=== PATIENT | female | born 1990 | race Caucasian/White ===

== ENCOUNTER 2021-07-23 17:20 | Emergency (ER) | payer MEDICAID ==
[~2021-07-23] VITALS: Ht 167.6 cm; Wt 80.9 kg
[~2021-07-23 17:20] MED LIST: DEXL60CA3 PO; DIPH-423 PO; EPIN0.3P3 IM; PRED50TA PO; RANI-366 PO; SUCR1ORA2 PO
[2021-07-23 17:40] VITALS: BP 150/86
[2021-07-23] MEDS ORDERED: DOXY100C43 PO (20:08)
[2021-07-23] MEDS ORDERED: ALBU18HF2 INH (20:08)
[2021-07-23] MEDS ORDERED: PRED20TA PO (20:08)
[2021-07-23] MEDS ORDERED: acetaminophen 325mg tablet PO ONE (20:15)
[2021-07-23] MEDS ORDERED: ibuprofen tablet 400 MG TABLET PO ONE (20:15)
== END 2021-07-23 20:42 | disposition home or self-care (01) ==
LOC: ER 17:21
DX: J20.9 Acute bronchitis, unspecified (principal); Z20.822 Contact with and (suspected) exposure to COVID-19; R07.89 Other chest pain; R05.9 Cough, unspecified; Z98.890 Other specified postprocedural states; Z72.89 Other problems related to lifestyle; Z60.2 Problems related to living alone; Z79.2 Long term (current) use of antibiotics; Z79.899 Other long term (current) drug therapy
CPT/HCPCS: 71045; 87635; 93005; 99285; C9803

== ENCOUNTER 2025-09-02 16:08 | Emergency (ER) | payer MEDICAID ==
[~2025-09-02] VITALS: Ht 170.2 cm; Wt 85.9 kg
[~2025-09-02 16:08] MED LIST changes: +ALBU18HF2 INH
[2025-09-02] MEDS ORDERED: EPIN0.3P3 IM (20:11)
--- NOTE | 2025-09-02 20:11 | Physician Documentation ---
History of Present Illness ~ Chief Complaint: Allergic Reaction Stated Complaint: ALLERGIC REACTION Time Seen by MD: 16:37 Primary Medical Doctor: [facility] Mode of Arrival: PORonal COLLINS Is a very pleasant 35-year-old female that presents to the emergency department for evaluation of allergic reaction. Patient reports that she was cleaning of leaves in her yd today that she believes have pesticide on them. Patient reports that she has a significant history of anaphylactic response to multiple allergens. She has previously been intubated and hospitalized for them. Patient reports that her ears are hot and swollen posterior aspect of her neck is swelling she has a stuffy sounding voice per patient patient denies any difficulty swallowing or any airway concerns at this time. Patient denies any other symptoms at this time. Medication Reconciliation Allergies: Coded Allergies: No Known Allergies (Unverified , 09/04/14) Scheduled Albuterol Sulfate (Ventolin Hfa), 2 PUFFS INH Q4HPRN Dexlansoprazole (Dexilant), 1 CAP PO DAILY Epinephrine (Epipen 2-Tomi), 1 SYR IM ONCE Prednisone (Prednisone), 1 TABLET PO DAILY Ranitidine Hcl (Zantac), 150 MG PO DAILY Sucralfate (Carafate), 10 ML PO ACHS Scheduled PRN Diphenhydramine Hcl (Benadryl), 25 MG PO TID PRN for itching Epinephrine (Epipen 2-Tomi), 1 APPLIC IM ONCE PRN for allergies Past Medical History Past Medical History: No Pertinent History Past Surgical History: Alcohol Use: Occasionally Drug Use: none Lives with: Alone Lives In: Home Occupation: employed Review of Systems ROS As stated above in the HPI, otherwise all systems are reviewed and negative. Physical Exam Vital Signs: Temperature: 99.0, Heart Rate: 84, Respiratory Rate: 15, BP: 159/108, Pulse Oximetry: 98, Weight: 85.910 Oxygen Flow Rate: 0 Physical Exam VITALS: Reviewed and as above. GENERAL: Alert, no apparent distress. HEENT: Normocephalic, atraumatic, PERRL, EOMI, dry mucosa, no erythema RESPIRATORY: Lungs clear, normal breath sounds, no respiratory distress noted on examination. CHEST: No accessory muscle use, no retractions CV: Regular rate, rhythm, no edema, no murmur, No: JVD GI: Soft, non-tender, bowels sounds present, no rebound, guarding, or rigidity BACK: No CVA tenderness, or swelling MUSCULOSKELETAL No deformities, no edema SKIN: Warm and dry, edema erythema and hives noted to the posterior aspect of the neck patient's trunk in the ears. NEURO: Oriented x4, No motor or sensory deficit PSYCH: Normal mood and affect, no agitation Progress Results/Orders Results/Orders Completed Orders - BARBARA RIVERA Methylprednisolone Sod Succ (Solumedrol (09/02/25 16:30) Diphenhydramine Capsule (Benadryl Capsul (09/02/25 16:30) Famotidine Tablet (Pepcid Tablet) (09/02/25 16:30) Medications Received in ER Medications (Trade) Dose Ordered Sig/Hakan Route PRN Reason Start Time Stop Time Status Last Admin Dose Admin (SoluMEDROL 125mg inj) 125 mg ONCE ONCE IM 09/02/25 16:30 09/02/25 16:31 DC 09/02/25 16:37 125 MG (Benadryl capsule) 50 mg ONCE ONCE PO 09/02/25 16:30 09/02/25 16:31 DC 09/02/25 16:37 50 MG (Pepcid tablet) 20 mg ONCE ONCE PO 09/02/25 16:30 09/02/25 16:31 DC 09/02/25 16:37 20 MG Vital Signs 09/02/25 09/02/25 09/02/25 09/02/25 16:12 16:23 16:51 17:57 Temp 99.0 Pulse 91 85 79 Resp 18 15 15 B/P (MAP) 140/81 129/108 (115) 127/85 (99) Pulse Ox 97 99 98 O2 Flow Rate 0 09/02/25 09/02/25 09/02/25 18:45 19:05 20:08 Temp 99.0 99.0 Pulse 84 72 B/P (MAP) 159/108 (125) 147/110 (122) Pulse Ox 98 97 O2 Flow Rate 0 0 Medical Decision Making Additional information obtaine: other Findings Chief Complaint: Acute allergic reaction to pesticide exposure History of Present Illness: 35-year-old female with significant history of multiple severe allergic reactions (including peanuts and other allergens) and prior intubation for presumed anaphylaxis presented to the emergency department following pesticide exposure while cleaning leaves. Patient reported "hot potato" voice, posterior neck swelling (external), erythema, and urticaria. Notably, patient denied airway compromise, dysphagia, dyspnea, or respiratory distress at presentation. Assessment and Clinical Reasoning: The patient presented with moderate allergic reaction with concerning features including voice changes and neck swelling, though without dioni anaphylaxis criteria. Given her high-risk history of previous anaphylactic reactions requiring intubation, aggressive treatment was warranted. The "hot potato" voice and posterior neck swelling raised concern for potential airway involvement, though the absence of dysphagia, stridor, or respiratory compromise suggested the reaction had not progressed to life-threatening anaphylaxis at the time of presentation. Treatment Decisions: The patient received appropriate adjunctive therapy including: Methylprednisolone 125 mg IV Diphenhydramine 50 mg IV Famotidine 20 mg IV While epinephrine is the first-line treatment for anaphylaxis, the clinical presentation suggested a moderate allergic reaction without meeting full anaphylaxis criteria (no respiratory compromise, hypotension, or gastrointestinal symptoms). The combination of H1 antihistamine (diphenhydramine), H2 antihistamine (famotidine), and corticosteroid was appropriate for managing the cutaneous and mucosal manifestations. The patient demonstrated complete resolution of symptoms with normalization of vital signs following this treatment regimen. Observation Period: The patient was observed for an appropriate duration given her risk factors. Patients with history of severe anaphylaxis, particularly those requiring multiple doses of epinephrine or with asthma, warrant extended observation periods of 4-8 hours or longer. The [place] [employer] recommends observation periods be individualized based on severity of initial reaction, response to treatment, and risk factors for biphasic reactions. Biphasic reactions occur in up to 20% of anaphylaxis cases and can develop 4-12 hours after initial presentation. Given this patient's high-risk history and initial concerning symptoms, extended observation was appropriate until complete symptom resolution was confirmed. Discharge Planning and Risk Mitigation: Epinephrine auto-injector prescription: The patient is being discharged with prescriptions for two epinephrine auto-injectors (0.3 mg each) - one for home and one for her vehicle. This follows evidence-based guidelines recommending all patients with history of anaphylaxis receive at least two epinephrine auto- injectors, as approximately 10% of anaphylactic reactions require more than one dose. The patient should be instructed to use epinephrine at the first sign of a generalized allergic reaction or any symptoms similar to previous severe reactions. Patient education priorities: Recognition of anaphylaxis symptoms (urticaria, angioedema, respiratory symptoms, gastrointestinal symptoms, hypotension) Proper epinephrine auto-injector technique with hands-on demonstration Immediate activation of EMS (call 911) after epinephrine administration Strict avoidance of identified triggers, particularly pesticides Awareness that symptoms may recur up to 3 days after initial reaction Follow-up care: The patient requires timely follow-up with an certified alcohol and drug counselor- package car driver for comprehensive evaluation, including potential skin or serum testing to identify specific triggers, development of a detailed emergency action plan, and consideration of additional allergen avoidance strategies. The certified alcohol and drug counselor can also evaluate for potential underlying mast cell disorders, which are present in approximately 8% of patients with recurrent anaphylaxis. Return precautions: The patient has been instructed to return immediately or call 911 if she experiences: Any respiratory symptoms (shortness of breath, wheezing, throat tightness) Difficulty swallowing or voice changes Dizziness, lightheadedness, or syncope Recurrence of hives, swelling, or other allergic symptoms Any symptoms concerning for anaphylaxis Disposition: Discharge home is appropriate given complete symptom resolution, hemodynamic stability, adequate observation period, prescription for epinephrine auto-injectors, comprehensive patient education, and established follow-up plan. The patient's high-risk history necessitates strict adherence to avoidance measures and immediate availability of epinephrine. Medical Decision-Making Complexity: This case represents moderate to high complexity medical decision-making given the patient's significant history of severe allergic reactions requiring intubation, presentation with concerning symptoms suggesting potential airway involvement, need for risk stratification regarding anaphylaxis versus moderate allergic reaction, and comprehensive discharge planning to prevent future life-threatening reactions. Differential Dx:Considerations: Include: Anaphylaxis, Angioedema, Bronchospasm, Contact dermatitis, Drug reaction, Hypotension, Latex allergy, Renal failure, Respiratory failure, Shock, Urticaria, Other Departure Disposition: 01 HOME / SELF CARE / HOMELESS Impression: Primary Impression: Acute allergic reaction Condition: Stable Discharge Instructions: Hives, [id number] Additional Instructions: Why You Came to the Emergency Department Today You came to the emergency department because you had an allergic reaction after being exposed to pesticides while cleaning leaves. You developed voice changes, swelling on the back of your neck, redness, and hives. We treated you with medications including steroids (Solu-Medrol), an antihistamine (Benadryl), and famotidine to help reduce your allergic reaction. Your symptoms have now resolved and your vital signs are normal. What You Need to Know About Allergic Reactions Given your history of severe allergic reactions that required hospitalization and breathing tube placement in the past, you are at higher risk for serious allergic reactions in the future. Allergic reactions can sometimes come back within hours after the first reaction (called a biphasic reaction), so it's important to watch for symptoms over the next 1-3 days. Warning Signs of a Severe Allergic Reaction (Anaphylaxis) Call 911 immediately if you develop any of these symptoms: Difficulty breathing, wheezing, or feeling like your throat is closing Swelling of your lips, tongue, or throat Difficulty swallowing or changes in your voice Dizziness, lightheadedness, or feeling like you might pass out Widespread hives or rash that spreads quickly Severe stomach pain, nausea, or vomiting Feeling confused or anxious Your EpiPen Prescription You are being given prescriptions for two EpiPens (epinephrine auto-injectors). Keep one at home and one in your car so you always have access to emergency medication. [4] Epinephrine is the most important medication for treating severe allergic reactions and should be used at the first sign of a serious reaction. How to Use Your EpiPen Remove the EpiPen from its carrier tube Hold it with the orange tip pointing down Remove the blue safety cap by pulling straight up Place the orange tip against the outer thigh (you can inject through clothing if needed) Push down hard until you hear a click Hold firmly in place for 3 seconds Remove and massage the injection area for 10 seconds After using your EpiPen, call 911 immediately. Even if you feel better after usi ng the EpiPen, you need emergency medical evaluation because symptoms can return. You may need a second dose of epinephrine if your symptoms don't improve within 5 minutes. [5-7] Avoiding Future Reactions Avoid pesticides completely. This includes bug sprays, weed killers, and other chemical products used for pest control Wear protective clothing and gloves if you must be around areas where pesticides may have been used Ask others to handle pesticide application and yard work involving chemicals Continue to avoid peanuts and other foods you know you're allergic to Always carry your EpiPen with you Medications to Continue at Home You may continue taking [id number] antihistamines (like Benadryl or a non- drowsy antihistamine) for 2-3 days if you have any lingering itching or mild hives. However, antihistamines are not a substitute for epinephrine if you develop signs of a severe allergic reaction. Important Follow-Up Care You must see an certified alcohol and drug counselor (community outreach specialist) as soon as possible. This is extremely important because: The certified alcohol and drug counselor can do testing to confirm exactly what you're allergic to They can create a detailed emergency action plan specifically for you They may identify other allergies you don't know about yet About 8% of people with severe allergic reactions have an underlying condition affecting their immune cells that needs to be diagnosed The certified alcohol and drug counselor can provide medical identification jewelry and reinforce proper EpiPen use Also schedule an appointment with your primary care doctor within the next week to review what happened today. When to Return to the Emergency Department Come back to the emergency department or call 911 if you experience: Any of the warning signs of severe allergic reaction listed above Return of hives, swelling, or redness Any breathing problems or chest tightness Dizziness or feeling faint Any symptoms that concern you Remember: If you use your EpiPen, always call 911, even if you start feeling better. Symptoms can come back, and you need medical evaluation. Questions? If you have questions about these instructions or your medications, call your primary care doctor or the emergency department. Referrals: NO PRIMARY CARE PROVIDER (PCP) Prescriptions Epinephrine (Epipen 2-Tomi) 0.3 Mg/0.3 Ml Auto.injct 1 SYR IM ONCE for 1 Day, #1 PKT 0 Refills Prov: BARBARA RIVERA 09/02/25 Education Educated: Patient Educated regarding: diagnosis, treatment, need for follow up Signature Scribe Signature: A Attestation: Scribed for Barbara Rivera by MECHE Gutierrez . 09/02/25 20:11 BABRARA RIVERA Sep 02, 2025 20:11
[2025-09-02 20:24] VITALS: BP 139/101; PULSE 72; RESP 16; TEMP 99; O2SAT 96
== END 2025-09-02 20:25 | disposition home or self-care (01) ==
LOC: ER 16:09
DX: T78.49XA Other allergy, initial encounter (principal); Z79.899 Other long term (current) drug therapy; Z72.89 Other problems related to lifestyle; Z98.890 Other specified postprocedural states; Z60.2 Problems related to living alone; X58.XXXA Exposure to other specified factors, initial encounter
CPT/HCPCS: 96372; 99285; J2919; Q0163